=== PATIENT | male | born 1960 | race African-American/Black ===

== ENCOUNTER → 2019-07-17 10:36 | Outpatient (CLI) | payer OTHER | END | disposition home or self-care (01) | LOC: D.US 10:36 | PROVIDERS: ATTEND Family Medicine | DX: N19 Unspecified kidney failure (principal) ==

== ENCOUNTER → 2020-08-03 08:27 | Outpatient (CLI) | payer OTHER | END | disposition home or self-care (01) | LOC: D.CT 08:27 | PROVIDERS: ATTEND Family Medicine | DX: I10 Essential (primary) hypertension (principal) ==